=== PATIENT | female | born 1975 ===

== ENCOUNTER 2017-05-22 06:25 | Day surgery (SDC) | payer OTHER ==
[2017-05-17 08:27] VITALS: BMI 33.6
[2017-05-22] MEDS ORDERED: Propofol 10 mg/ml Inj (20 ML) ONE ×2 (07:39→07:54)
[2017-05-22] MEDS ORDERED: Midazolam 2 MG/2 ML VIAL ONE (07:39)
[2017-05-22] MEDS ORDERED: Gentamicin 80 mg in 0.9% NS 80 MG/100 ML BAG IVPB ONE (07:50)
[2017-05-22] MEDS ORDERED: Doxycycline 100 mg Inj ONE (07:54)
[2017-05-22] MEDS ORDERED: HYDROmorphone 0.5 mg/0.5 ml ISec IVP PRN (08:10)
[2017-05-22 10:46] VITALS: BP 127/86; PULSE 58; RESP 16; TEMP 97.2; O2SAT 98
--- NOTE | 2017-05-23 00:03 | OP ---
PROCEDURE DATE: 05/22/2017 PREOPERATIVE DIAGNOSIS: Cervical dysplasia. POSTOPERATIVE DIAGNOSIS: Cervical dysplasia. PROCEDURE: Cone biopsy with an endocervical curettage. FINDINGS: Normal appearing exocervix. SURGEON: Dr. Espinoza. ANESTHESIA: General. ESTIMATED BLOOD LOSS: Less than 1 mL. COMPLICATIONS: Nil. DESCRIPTION OF PROCEDURE: After the risks, benefits, and alternatives of the planned procedure including but not limited to infection, hemorrhage, deep vein thrombosis, atelectasis, pneumonia, pulmonary embolism, damage to the bladder, damage to the ureter, renal insufficiency, renal failure, wound infection, wound dehiscence, incisional hernia,clot formation, damage to the large and small intestine, damage to the inferior vena cava and aorta requiring extensive repair, anesthesia complications, electrolyte imbalance, possibility of , fluid overload, cerebral edema, air embolism, and other complications that were discussed but are not listed above have been explained to the patient and all her questions were answered and informed consent was obtained. Risk of cervical stenosis, cervical incompetence and recurrence of cervical dysplasia were also discussed. The patient was taken to the operating room in a stable condition under a suitable level of general anesthesia, she was prepped and draped in a sterile fashion after having been placed in a dorsal lithotomy position. Weighted speculum was inserted into the vagina. The anterior lip of the cervix was grasped using a single tooth tenaculum, the exocervix was painted using Lugol's iodine. A cone biopsy was then performed using a triangular shaped LEEP electrode starting at the 6 o' clock position and moving circumferentially to end up at the 6 o' clock position. *------* was tapered towards the lower one-half of the endocervical canal. An endocervical curettage was performed and scant tissue was obtained. Excision site was then fulgurated using cautery. Once the solution was applied to the exocervix, instruments were then removed from the vagina. There was good hemostasis. The patient was then transferred to the recovery room in a stable condition. Sponge and instrument counts were correct x2. There were no complications. Heidi Espinoza MD [facility] # [id number]
== END 2017-05-22 10:41 | disposition home or self-care (01) ==
LOC: C.SDS 06:25
PROVIDERS: ATTEND Obstetrics & Gynecology Reproductive Endocrinology
DX: D06.0 Carcinoma in situ of endocervix (principal)
CPT/HCPCS: 57522; 88305; J1100; J1580; J2250; J2405; J2704; J3010

== ENCOUNTER 2017-06-14 21:25 | Emergency (ER) | payer OTHER ==
[2017-06-14 21:25] VITALS: BMI 33.6
[2017-06-14 21:48] VITALS: TEMP 98.1
[2017-06-14] MEDS ORDERED: Iohexol 240 (50 ml) PO STA (22:03)
[2017-06-14] MEDS ORDERED: Sodium Chloride 0.9% 1,000 ML IV ONE (22:03)
[2017-06-14] MEDS ORDERED: Iohexol 240 (50 ml) ONE (22:38)
[2017-06-14 22:49] LABS: RBC URINE < 1 /hpf (0-3); URINE BACTERIA RARE (<OCC); URINE BILIRUBIN NEGATIVE (NEGATIVE); URINE BLOOD NEGATIVE (NEGATIVE); URINE COLOR Yellow (YELLOW); URINE GLUCOSE (UA) NORMAL (Normal); URINE KETONE NEGATIVE (NEGATIVE); URINE LEUKOCYTE ESTERASE NEG Leu/uL (Negative); URINE PROTEIN NEGATIVE (NEGATIVE); WBC URINE 1 /hpf (0-5)
[2017-06-14 23:01] LABS: BASO # 0.1 K/uL (0.0-0.2); BASO % 0.8 % (0.0-2.0); EOS # 0.4 K/uL (0.0-0.7); HEMATOCRIT 32.4 % (34.0-47.0); LYMPH % 27.7 % (20.0-40.0); MEAN CELL VOLUME 96.5 fL (81.0-99.0); MEAN CORPUSCULAR HGB CONC 33.1 g/dL (33.0-37.0); MEAN PLATELET VOLUME 8.1 fL (7.2-11.7); MONO # 0.6 K/uL (0.0-0.8); RED CELL DISTRIBUTION WIDTH 12.4 % (11.5-14.5)
[2017-06-14 23:07] LABS: CHLORIDE 100 mmol/L (98-107); POTASSIUM 3.9 mmol/L (3.6-5.2); SODIUM 137 mmol/L (132-148)
[2017-06-14 23:09] LABS: BILIRUBIN,TOTAL 0.6 mg/dL (0.2-1.3); CARBON DIOXIDE 28 mmol/L (22-30); GFR AFRICAN-AMERICAN > 60
[2017-06-14 23:10] LABS: ALB/GLOB RATIO 1.1 (1.0-2.1); ALKALINE PHOSPHATASE 74 U/L (38-126); ALT/SGPT 58 U/L (9-52); AST/SGOT 41 U/L (14-36); BLOOD UREA NITROGEN 6 mg/dL (7-17); CALCIUM 8.8 mg/dl (8.6-10.4); GLUCOSE,RANDOM 96 mg/dL (65-105); TOTAL PROTEIN 6.4 g/dL (6.3-8.3)
[2017-06-15] MEDS ORDERED: Iodixanol 320 MG/ML 100 ML BOTTLE IV ONE (00:06)
[2017-06-15 00:29] VITALS: O2SAT 97
--- NOTE | 2017-06-15 01:22 | CT ---
EXAM: CT Abdomen and Pelvis With Intravenous Contrast CLINICAL HISTORY: 41 years old, female; Pain; Abdominal pain; Prior surgery; Surgery type: Hysterectomy surgery 4 days ago; Additional info: Abd pain, constipation S/P hysterectomy 3 days ago TECHNIQUE: Axial computed tomography images of the abdomen and pelvis with intravenous contrast. All CT scans at this facility use one or more dose reduction techniques, viz.: automated exposure control; ma/kV adjustment per patient size (including targeted exams where dose is matched to indication; i.e. head); or iterative reconstruction technique. Coronal and sagittal reformatted images were created and reviewed. CONTRAST: 100 mL of [id number] administered intravenously. EXAM DATE/TIME: 06/14/2017 10:03 PM COMPARISON: There are no prior studies for comparison. FINDINGS: Lower thorax: Heart size is normal. There is atelectasis at the lung bases ABDOMEN: Liver: There is fatty infiltration of the liver. Gallbladder and bile ducts: Gallbladder is partially distended. Common duct is prominent. Pancreas: unremarkable Spleen: unremarkable Adrenals: Right adrenal is unremarkable. There is a 2 x 1.2 cm left adrenal nodule Kidneys and ureters: Kidneys and ureters are unremarkable. Stomach and bowel: Stomach is almost empty. Rotation is normal. Small bowel is mildly distended. There is scattered air-fluid levels. There is no obstruction. Terminal ileum is unremarkable.Appendix is not visualized.There is no pericecal inflammation. There is moderate stool in the right colon. Transverse and descending colon are partially distended with air. Appendix: See above. PELVIS: Bladder: Bladder is partially distended. Reproductive: Uterus is surgically absent. There are no adnexal masses. ABDOMEN and PELVIS: Intraperitoneal space: See above. Bones/joints: There are no acute osseous abnormalities. There degenerative changes in the spine. Soft tissues: There is a small fat containing umbilical hernia. There is retrovesical edema. There is minimal fluid in the pelvis. There is a small amount of postoperative free air in the prevesical space and space of Retzius. There is edema and air in the abdominal wall. Vasculature: Vascular structures are unremarkable. Lymph nodes: There is no pathologic adenopathy. IMPRESSION: Postsurgical changes of recent hysterectomy; no acute solid visceral or bowel abnormality Additional findings as described above.
--- NOTE | 2017-06-15 01:36 | C.PDOC ---
Time Seen by Provider: 06/14/17 21:52 Chief Complaint (Nursing): Abdominal Pain History Per: Patient Onset/Duration Of Symptoms: Days (3) Current Symptoms Are (Timing): Still Present Context: Other (s/p Hysterectomy 3 days ago) Quality Of Discomfort: "Pain" Associated Symptoms: Constipation Last Bowel Movement: Days Ago (4) Additional History Per: Prior Records Abnormal Vaginal Bleeding: No Past Medical History Reviewed: Historical Data, Nursing Documentation, Vital Signs Vital Signs: Last Vital Signs Temp 98.1 F 06/14/17 21:43 Pulse 78 06/14/17 23:15 Resp 17 06/14/17 23:15 BP 146/92 H 06/14/17 23:15 Pulse Ox 97 06/15/17 01:37 - Medical History PMH: No Chronic Diseases Other Surgeries: Hysterectomy - [facility] Procedures CERVICAL LES CAUTERIZAT (07/21/14) OTHER NEUROPLASTY (04/05/01) SUTURE HAND MUSCLE/FASC (04/05/01) Family History: States: Unknown Family Hx - Social History Hx Alcohol Use: No Hx Substance Use: No Review Of Systems Except As Marked, All Systems Reviewed And Found Negative. Constitutional: Negative for: Fever, Weakness Cardiovascular: Negative for: Chest Pain Respiratory: Negative for: Shortness of Breath Gastrointestinal: Positive for: Abdominal Pain, Constipation. Negative for: Vomiting Genitourinary: Negative for: Dysuria Musculoskeletal: Negative for: Neck Pain, Back Pain Skin: Negative for: Rash Neurological: Negative for: Weakness, Numbness, Seizures, Altered Mental Status Physical Exam - Physical Exam Appears: Non-toxic, No Acute Distress Skin: Normal Color, Warm, Dry, No Rash Head: Atraumatic, Normacephalic Eye(s): bilateral: Normal Inspection, PERRL, EOMI Neck: Normal ROM, Supple Cardiovascular: Rhythm Regular Respiratory: Normal Breath Sounds, No Accessory Muscle Use Gastrointestinal/Abdominal: Soft, Tenderness (mild left sided), No Guarding, No Rebound, Other (Surgical wound with no signs of infection) Back: No CVA Tenderness Extremity: Normal ROM Neurological/Psych: Oriented x3, Normal Motor, Normal Sensation ED Course And Treatment - Laboratory Results Result Diagrams: 06/14/17 22:56 06/14/17 22:56 Lab Interpretation: No Acute Changes O2 Sat by Pulse Oximetry: 97 Pulse Ox Interpretation: Normal - CT Scan/US CT abd/pelv. Other Rad Studies (CT/US): Read By Radiologist, Radiology Report Reviewed CT/US Interpretation: IMPRESSION: Postsurgical changes of recent hysterectomy; no acute solid. visceral or bowel abnormality. Reassessment Condition: Improved Progress - Interventions Interventions:: Observation, Intravenous fluid - Medications Administered Intravenous: Antiemetic, H-2 cheyanne, NSAID - Data Reviewed Data Reviewed: Lab, Diagnostic imaging, Old records - Patient Status Patient status: Mostly improved - Continuity of Care Discussed patient case with:: Patient, Family-HIPPA compliant, ED Nurse - Patient Plan Patient Plan: Discharge, F/U with PCP, Continue present meds Disposition Counseled Patient/Family Regarding: Studies Performed, Diagnosis, Need For Followup, Rx Given - Disposition Referrals: Heidi Espinoza MD [Staff Provider] - Disposition: HOME/ ROUTINE Disposition Time: 01:38 Condition: IMPROVED Additional Instructions: Follow up with your doctor for further evaluation and treatment. Return to the ER if you develop fever, vomiting, worsening of symptoms or if you have any other concerns. Prescriptions: Famotidine [Pepcid] 20 mg PO BID #30 tab Polyethylene Glycol 3350 [Miralax] 17 gm PO DAILY #7 packet Sennosides [Senna] 8.6 mg PO BID PRN #10 tablet PRN Reason: Constipation Instructions: Constipation (ED) Forms: [facility] (Solomon Islander) - Clinical Impression Clinical Impression: Constipation, S/P hysterectomy, Abdominal pain
[2017-06-15 02:27] VITALS: BP 128/78; PULSE 88; RESP 18
== END 2017-06-15 01:55 | disposition home or self-care (01) ==
LOC: C.ER 21:25
DX: K59.00 Constipation, unspecified (principal); R10.9 Unspecified abdominal pain; Z90.710 Acquired absence of both cervix and uterus
CPT/HCPCS: 74177; 80053; 81001; 83690; 85025; 87086; 96374; 96375; 99285; C9113; J1885; J2405; J7040; Q9966; Q9967

== ENCOUNTER 2017-06-22 02:43 | Emergency (ER) | payer OTHER ==
[2017-06-22 02:44] VITALS: BMI 33.6
[2017-06-22 03:13] VITALS: RESP 20
--- NOTE | 2017-06-22 03:31 | C.PDOC ---
History Of Present Illness Patient presents in acute urinary retention since 7 pm. SHe had a hysterectomy last week. No f/c/n/v Sharp suprapubic pressure Time Seen by Provider: 06/22/17 03:31 Chief Complaint (Nursing): Female Genitourinary History Per: Patient History/Exam Limitations: no limitations Onset/Duration Of Symptoms: Hrs Current Symptoms Are (Timing): Worse Severity: Severe Pain Scale Rating Of: 7 Quality Of Discomfort: Pressure Associated Symptoms: denies: Fever, Chills Alleviating Factors: None Recent travel outside of the [place]: No Additional History Per: Patient Abnormal Vaginal Bleeding: No Past Medical History Reviewed: Historical Data, Nursing Documentation, Vital Signs Vital Signs: Last Vital Signs Temp 98.4 F 06/22/17 03:08 Pulse 91 H 06/22/17 03:08 Resp 20 06/22/17 03:08 BP 123/87 06/22/17 03:08 Pulse Ox 100 06/22/17 03:31 - Medical History PMH: Denies: Chronic Kidney Disease - [facility] Procedures CERVICAL LES CAUTERIZAT (07/21/14) OTHER NEUROPLASTY (04/05/01) SUTURE HAND MUSCLE/FASC (04/05/01) Family History: States: No Known Family Hx - Social History Hx Alcohol Use: No Hx Substance Use: No - Immunization History Hx Tetanus Toxoid Vaccination: No Hx Influenza Vaccination: No Hx Pneumococcal Vaccination: No Review Of Systems Constitutional: Negative for: Fever, Chills Cardiovascular: Negative for: Chest Pain Respiratory: Negative for: Shortness of Breath Gastrointestinal: Positive for: Abdominal Pain (suprapubic). Negative for: Nausea, Vomiting Genitourinary: Positive for: Other (rinary retention) Musculoskeletal: Negative for: Back Pain Skin: Negative for: Rash Neurological: Negative for: Weakness Psych: Negative for: Anxiety Physical Exam - Physical Exam Appears: In Acute Distress Skin: Warm, Dry Oral Mucosa: Moist Chest: Symmetrical Cardiovascular: Rhythm Regular Respiratory: No Rales, No Rhonchi, No Wheezing Gastrointestinal/Abdominal: Soft, Tenderness (suprapubic), Distention Back: No CVA Tenderness Extremity: Normal ROM Extremity: Bilateral: Atraumatic Pulses: Left Dorsalis Pedis: Normal, Right Dorsalis Pedis: Normal Neurological/Psych: Oriented x3, Normal Speech, Normal Cognition Gait: Steady ED Course And Treatment O2 Sat by Pulse Oximetry: 100 Pulse Ox Interpretation: Normal Progress Note: solano placed with about 1000 cc of clear urine. Pt with instant relief Disposition Counseled Patient/Family Regarding: Studies Performed, Diagnosis, Need For Followup - Disposition Referrals: Roberto Pollack MD [Staff Provider] - Disposition: HOME/ ROUTINE Disposition Time: 03:31 Condition: FAIR Instructions: Acute Urinary Retention in Women (ED), Urinary Leg Bag (GEN) Forms: [facility] ([place]an) - Clinical Impression Clinical Impression: Urinary retention
[2017-06-22 04:11] VITALS: BP 132/78; PULSE 88; TEMP 98; O2SAT 98
== END 2017-06-22 04:12 | disposition home or self-care (01) ==
LOC: C.ER 02:43
DX: R33.9 Retention of urine, unspecified (principal)

== ENCOUNTER 2017-06-23 12:16 | Emergency (ER) | payer OTHER ==
[2017-06-23 12:17] VITALS: BMI 33.6
[2017-06-23 12:26] VITALS: BP 123/88; PULSE 76; RESP 18; TEMP 97.7; O2SAT 100
[2017-06-23 13:14] LABS: RBC URINE 13 /hpf (0-3); URINE BACTERIA MANY (<OCC); URINE BILIRUBIN NEGATIVE (NEGATIVE); URINE BLOOD 2+ (NEGATIVE); URINE COLOR Yellow (YELLOW); URINE GLUCOSE (UA) NORMAL (Normal); URINE KETONE NEGATIVE (NEGATIVE); URINE LEUKOCYTE ESTERASE 3+ Leu/uL (Negative); URINE PROTEIN NEGATIVE (NEGATIVE); URINE UROBILINOGEN NORMAL mg/dL (0.2-1.0); WBC URINE 64 /hpf (0-5)
--- NOTE | 2017-06-23 13:41 | C.PDOC ---
History Of Present Illness Rozina Figueredo, a 41 year old female, presents to the ED stating that she had a solano catheter in place secondary to urinary retention and is now noticing some redness and sand like material in the bag today. The patient reports that she had a hysterectomy last week in which she developed difficulty urinating Denies, fever, vomiting, back pain. Time Seen by Provider: 06/23/17 12:29 Chief Complaint (Nursing): Female Genitourinary History Per: Patient History/Exam Limitations: no limitations Onset/Duration Of Symptoms: Hrs Current Symptoms Are (Timing): Still Present Associated Symptoms: denies: Fever, Vomiting, Back Pain Past Medical History Reviewed: Historical Data Vital Signs: Last Vital Signs Temp 97.7 F 06/23/17 12:20 Pulse 76 06/23/17 13:58 Resp 18 06/23/17 13:58 BP 123/88 06/23/17 12:20 Pulse Ox 100 06/23/17 13:58 - Medical History PMH: No Chronic Diseases Denies: Chronic Kidney Disease Surgical History: No Surg Hx - [facility] Procedures CERVICAL LES CAUTERIZAT (07/21/14) OTHER NEUROPLASTY (04/05/01) SUTURE HAND MUSCLE/FASC (04/05/01) Family History: States: Unknown Family Hx - Social History Hx Alcohol Use: No Hx Substance Use: No - Immunization History Hx Tetanus Toxoid Vaccination: Yes Hx Influenza Vaccination: No Hx Pneumococcal Vaccination: No Review Of Systems Constitutional: Negative for: Fever Gastrointestinal: Negative for: Vomiting Genitourinary: Positive for: Other (sand like material in solano catether bag and redness around area) Musculoskeletal: Negative for: Back Pain Physical Exam - Physical Exam Appears: Well, Toxic Skin: Normal Color, Warm, Dry, No Rash Head: Atraumatic, Normacephalic, No Tenderness, No Swelling Eye(s): bilateral: Normal Inspection, PERRL, EOMI Nose: Normal, No Flaring, No Discharge, No Deformity, No Tenderness Oral Mucosa: Moist, No Drooling Tongue: Normal Appearing, No Swelling, No Lesions, No Laceration Lips: Normal Appearing, No Swelling, No Contusion, No Laceration Teeth: Normal Dentition, No Caries, No Dentures Gingiva: Normal Appearing, No Erythema, No Swelling Throat: Normal, No Erythema, No Exudate Neck: Normal, Normal ROM, No Step Off Deformity, Supple Lymphatic: Normal Exam Chest: Symmetrical, No Deformity, No Tenderness Cardiovascular: Rhythm Regular, No Murmur Respiratory: Normal Breath Sounds, No Rales, No Rhonchi, No Stridor, No Wheezing Gastrointestinal/Abdominal: Normal Exam, Bowel Sounds, Soft, No Tenderness, No Mass, No Guarding, No Rebound, Other (Solano catheter in place with leg bag; Surgical wound no evidence cellulitis) Back: Normal Inspection, No CVA Tenderness, No Vertebral Tenderness, No Paraspinal Tenderness Extremity: Normal ROM, No Tenderness, No Pedal Edema, No Calf Tenderness, No Deformity, No Swelling Neurological/Psych: Oriented x3, Normal Speech, Normal Cognition Gait: Steady ED Course And Treatment O2 Sat by Pulse Oximetry: 100 (RA) Pulse Ox Interpretation: Normal Medical Decision Making Medical Decision Makin Initial Impression: Initial Plan: * Cipro 500mg PO * Urine Culture * Urinalysis * HCG- Qualitative * Pyridium 100mg PO * Reevaluation Will check urine for possible infection. UA is (+) for UTI. PAtient started on Cipro. Disposition - Disposition Referrals: Ulisses Urbina MD [Staff Provider] - Disposition: HOME/ ROUTINE Disposition Time: 13:51 Condition: GOOD Additional Instructions: Follow up with the medical doctor within 1-2 days. Return if worsened. Prescriptions: Ciprofloxacin [Cipro] 1 tab PO BID #14 tab Phenazopyridine HCl [Pyridium] 200 mg PO TID #7 tablet Instructions: Urinary Tract Infection in Women (ED) Forms: [facility] (Afghan) Print Language: LIBERIAN - Clinical Impression Clinical Impression: UTI (urinary tract infection) - Scribe Statement The provider has reviewed the documentation as recorded by the Scribmilagros Gould All medical record entries made by the Scribe were at my direction and personally dictated by me. I have reviewed the chart and agree that the record accurately reflects my personal performance of the history, physical exam, medical decision making, and the department course for this patient. I have also personally directed, reviewed, and agree with the discharge instructions and disposition.
== END 2017-06-23 13:56 | disposition home or self-care (01) ==
LOC: C.ER 12:16
DX: N39.0 Urinary tract infection, site not specified (principal)

== ENCOUNTER 2019-03-09 17:00 | Emergency (ER) | payer MEDICAID, OTHER | END 2019-03-09 18:22 | disposition home or self-care (01) | LOC: C.ER 17:00 ==